=== PATIENT | male | born 1990 ===

== ENCOUNTER 2023-06-30 17:13 | Emergency (ER) | payer OTHER, SELFPAY ==
[2023-06-30 17:19] VITALS: BP 122/62; BP 141/78; PULSE 89; PULSE 94; RESP 18; TEMP 36.8; O2SAT 97; BMI 21.4
--- NOTE | 2023-06-30 17:30 | ED.SOB ---
HPI - SOB/Dyspnea General Chief Complaint: Anxiety Stated Complaint: from mall, diff breathing Related Data Allergies Allergy/AdvReac Type Severity Reaction Status Date / Time No Known Allergies Allergy Verified 06/30/23 17:33 Physical Exam Vital Signs: Vital Signs: Last Vital Signs Temp 98.2 F 06/30/23 17:19 Pulse 89 06/30/23 17:19 Resp 18 06/30/23 17:19 BP 141/78 H 06/30/23 17:19 Pulse Ox 97 06/30/23 17:19 O2 Del Method Room Air 06/30/23 17:19 BMI result Body Mass Index 21.4 Course Course Course Narrative: RME - 33 yo male with history of IVDA presents to the ER for evaluation of acute onset of SOB and pleuritic chest pain while he was buying things [place] the mall. He reports history of panic attacks but this was different. Overall symptoms improved but pleuritic chest pain persists. +fever 1 week ago and tested negative for COVID. VSS in triage. Plan: EKG, CXR, basic labs given hx IVDA Reevaluation(s) Reevaluation #1: patient left without completing treatment Time: 18:26 Discharge Plan Discharge Clinical Impression: Pleuritic chest pain Patient Disposition: Left W/O Completing Treatment
--- NOTE | 2023-06-30 17:34 | ECG_ITS ---
Test Reason : chest pain Blood Pressure : / mmHG Vent. Rate : 084 BPM Atrial Rate : 084 BPM P-R Int : 118 ms QRS Dur : 090 ms QT Int : 356 ms P-R-T Axes : 061 069 055 degrees QTc Int : 420 ms Normal sinus rhythm Normal ECG No previous ECGs available Referred By: Reyna Martins Electronically Signed By:MARCO SPAULDING MD
== END 2023-06-30 19:02 | disposition left against medical advice (07) ==
LOC: HO.ED 18:57
PROVIDERS: Emergency Provider Emergency Medicine
DX: R07.89 Other chest pain (principal)
CPT/HCPCS: 93005; 99281; 99283